=== PATIENT | female | born 1960 | race Caucasian/White ===

== ENCOUNTER 2016-11-16 14:16 | Outpatient (CLI) | payer SELFPAY ==
[2016-11-18 02:31] LABS: HPV High Risk Type 16 Negative (Negative); HPV High Risk Type 18 Negative (Negative); HPV Other High Risk Types Negative (Negative)
== END 2016-11-16 14:17 | disposition home or self-care (01) ==
LOC: LABLEX 14:16
PROVIDERS: ATTEND Family Medicine
DX: Z00.00 Encounter for general adult medical examination without abnormal findings (principal); Z12.4 Encounter for screening for malignant neoplasm of cervix
CPT/HCPCS: 87624

== ENCOUNTER 2016-11-16 14:26 | Outpatient (CLI) | payer SELFPAY | END 2016-11-16 14:27 | disposition home or self-care (01) | LOC: LABLEX 14:26 | PROVIDERS: ATTEND Family Medicine | DX: Z00.00 Encounter for general adult medical examination without abnormal findings (principal); Z12.4 Encounter for screening for malignant neoplasm of cervix | CPT/HCPCS: 88142; G0123 ==

== ENCOUNTER 2016-11-18 11:09 | Outpatient (CLI) | payer SELFPAY ==
[2016-11-18 16:48] LABS: #Basophils 0.1 thou/uL (0.0-0.2); #Eosinphils 0.2 thou/uL (0.0-0.7); #Lymphocytes 1.5 thou/uL (1.20-3.40); #Monocytes 0.4 thou/uL (0.11-0.59); #Neutrophils 1.8 thou/uL (1.40-6.50); %Basophils 2.8 % (0.0-1.0); %Eosinophils 4.1 % (0.0-10.0); %Lymphocytes 38.3 % (21.0-51.0); %Neutrophils 45.8 % (42.0-75.0); Hemoglobin 15.3 g/dL (12.0-16.0); Mean Corpuscular HGB CONC 33.1 g/dL (32.0-36.0); Mean Corpuscular Hemoglobin 30.9 pg (27.0-31.0); Mean Corpuscular Volume 93.2 fl (81.0-99.0); Mean Platelet Volume 8.5 fL (7.4-10.4); Platelet Count 194 thou/uL (130-400); RBC Distribution Width 12.1 % (11.5-14.5); Red Blood Cell (RBC) Count 4.97 mill/uL (4.20-5.40)
[2016-11-18 17:18] LABS: ALT (SGPT) 11 U/L (0-55); AST (SGOT) 18 U/L (5-34); Albumin 4.2 g/dL (3.5-5.0); Alkaline Phosphatase 37 U/L (40-150); Anion Gap 13 mmol/L (10-20); BUN (Urea Nitrogen) 16 mg/dL (9.8-20.1); Bilirubin, Total 1.5 mg/dL (0.2-1.2); Calc. Creatinine Clearance 0 mL/min (70-130); Calcium 9.2 mg/dL (7.8-10.44); Carbon Dioxide 27 mmol/L (22-29); Cardiac Risk 2.7 (Less than 4.5); Chloride 108 mmol/L (98-107); Cholesterol 165 mg/dL (< 200 Desired); Estimated GFR-MDRD 84; Glucose 90 mg/dL (70-105); HDL Cholesterol 61 mg/dL (>60 Neg Risk); LDL Cholesterol, Calculated 93 mg/dL; Potassium 4.6 mmol/L (3.5-5.1); Protein, Total 6.2 g/dL (6.0-8.3); Sodium 143 mmol/L (136-145); Triglycerides 54 mg/dL (Less than 150)
== END 2016-11-18 11:10 | disposition home or self-care (01) ==
LOC: LABLEX 11:09
PROVIDERS: ATTEND Family Medicine
DX: Z00.00 Encounter for general adult medical examination without abnormal findings (principal)
CPT/HCPCS: 80053; 80061; 84443; 85025